=== PATIENT | female | born 2000 | race Caucasian/White ===

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

== ENCOUNTER 2019-02-20 05:30 | Inpatient (IN) ==
[2019-02-20] MEDS ORDERED: Naloxone 0.4 MG/ML INJ IVP PRN (05:47)
[2019-02-20] MEDS ORDERED: Famotidine 20 MG/2 ML VIAL IVP PRN (05:47)
[2019-02-20] MEDS ORDERED: miSOPROStol 25 MCG TABLET PO PRN (05:47)
[2019-02-20] MEDS ORDERED: Metoclopramide 10 MG/2 ML VIAL IVP PRN (05:47)
[2019-02-20] MEDS ORDERED: *HR* Nalbuphine 10 MG/ML AMPUL IVP PRN (05:47)
[2019-02-20] MEDS ORDERED: Ondansetron 4 MG/2 ML VIAL IVP PRN (05:47)
[2019-02-20] MEDS ORDERED: D5% in 0.45% NACL 1,000 ML IVC SCH (06:00)
[2019-02-20] MEDS ORDERED: Ringers Solution, Lactated 1,000 ML IVC SCH (06:00)
[2019-02-20] MEDS ORDERED: Lidocaine -MPF 1% 2 ML VIAL ONE (06:26)
[2019-02-20] MEDS ORDERED: Epidural Premix (fent/bupiv) 110 ML EP SCH (06:45)
--- NOTE | 2019-02-20 06:47 | Anesthesia Evaluation PreOp ---
Date of Encounter: 02/20/19 Time of Encounter: 06:44 - Past History Planned Operation: Del, induction Cardiac History: Denies any Significant Hx Pulmonary History: Denies Any Significant HX [employer] History: Denies Any Significant HX Other Medical History: Denies Any Significant HX Anesthesia History: No Prior Anesthetic Complications, Past Anesthesia (previous epidurals without comp, no family hx.) Alcohol Use: none Drug use: none Medications and Allergies Acetaminophen [Tylenol] 650 mg PO Q6HR PRN tablet 12/14/17 [Rx] Aspirin [Lo-Dose Aspirin EC] 81 mg PO DAILY 01/28/19 [History] Ferrous Sulfate [High Potency Iron] 27 mg PO DAILY 01/28/19 [History] Folic Acid 1 mg PO DAILY 01/28/19 [History] Ondansetron HCl [Zofran] 2 tab PO DAILY 01/28/19 [History] Pediatric Multivit Comb. No.49 [Flintstones Gummies] 1 tab PO DAILY 01/28/19 [History] Allergy/AdvReac Type Severity Reaction Status Date / Time No Known Allergies Allergy Verified 12/12/17 19:32 Anesthesia Exam - HEENT Pupil (Motor): Pupils equal Mallampati: III Teeth: Poor dentition Oral Opening: Greater than 3 - [employer] LOC: Oriented [employer] Motor: Normal RUE, Normal LUE, Normal RLE, Normal LLE, Normal Face [employer] Sensory: Normal: RUE, LUE, RLE, LLE, Face - Cardiac Rhythm: Regular Murmur: None - Pulmonary Breath Sounds: bilateral Clear Respiratory Effort: Symmetrical Anesthesia Assess/Plan ASA Score: 2 Level of consciousness: Cooperative, Oriented Anesthetic Plan: General, Spinal, Epidural Monitoring Plan: Standard Monitors Recovery Plan: PACU
[2019-02-20 06:50] LABS: Hemoglobin 9.1 g/dL (11.5-15.4)
[2019-02-20 06:51] LABS: Eosinophils % 1.2 %
[2019-02-20 06:52] LABS: Basophils # 0.1 K/mcL (0.0-0.2); Basophils % 0.8 %; Eosinophils # 0.1 K/mcL (0.0-0.6); Hematocrit 32.2 % (35.3-44.9); Immature Granulocytes % 0.4 % (0-4); Lymphocytes # 1.8 K/mcL (0.6-4.6); Lymphocytes % 23.6 %; Mean Corpuscular HGB Conc 28.3 g/dL (31.6-35.5); Mean Corpuscular Hemoglobin 20.1 pg (28.0-33.3); Mean Corpuscular Volume 71.2 fL (83.0-100.0); Mean Platelet Volume 9.7 fL (9.4-12.4); Monocytes # 0.9 K/mcL (0.0-1.3); Monocytes % 11.4 %; Neutrophils # 4.8 K/mcL (1.6-8.9); Platelet Count 392 K/mcL (140-400); Red Blood Count 4.52 M/mcL (3.82-4.97); Red Cell Distribution Width 25.6 % (11.5-14.5); Segmented Neutrophils % 62.6 %
[2019-02-20 06:57] LABS: Amphetamine Screen,Urine Negative ng/mL (Cutoff=1000); Barbiturate Screen,Urine Negative ng/mL (Cutoff=200)
[2019-02-20 06:58] LABS: Benzodiazepines Screen,Urine Negative ng/mL (Cutoff=300); Cannabinoid Screen,Urine Negative ng/mL (Cutoff = 50); Cocaine Screen,Urine Negative ng/mL (Cutoff= 300); Opiate Screen,Urine Negative ng/mL (Cutoff=300); Phencyclidine Screen,Urine Negative ng/mL (Cutoff=25)
[2019-02-20 07:13] LABS: Anisocytosis 1+ (Not Present); Hypochromasia Present (Not Present)
[2019-02-20 07:14] LABS: Ovalocytes 1+ (Not Present); Platelet Estimate Normal (Normal); Poikilocytosis 1+ (Not Present)
--- NOTE | 2019-02-20 09:31 | OB/GYN History & Physical ---
Date of Encounter: 02/20/19 Time of Encounter: 09:27 Assessment and Plan (1) Polyhydramnios affecting in third trimester Current visit: Yes Status: Acute Glucose screening normal. No structural abnormalities dentified for late onset polyhydramnios. No history of viral infections. The patient has had MFM consultation (2) Anemia affecting in third trimester Current visit: Yes Status: Acute The patient has received iron infusions and vitamin B12 injections. She has increased from 7.9-9.1 prior to delivery. (3) Short interval between pregnancies affecting in third trimester, antepartum Current visit: Yes Status: Acute (4) 39 weeks gestation of Current visit: Yes Status: Acute History of Present Illness Chief complaint: IOL @ 39 wks HPI: Ms. Smith is a 19 year old female with an EDC of 02/24/19@39 weeks and 3 days by LMP and first trimester ultrasound who presents for induction of labor for medical indications of polyhydramnios and gestational hypertension. Her is also been complicated by a BMI of 30 prepregnancy and short interval between pregnancies. She is also has significant anemia where her hemoglobin has dropped to 7.9. She is been receiving B12 injections and IV iron and today presents with a hemoglobin of 9.1. Her ELVIRA was recently was 26.8 with an MVP of 8.7. She was followed by NSTs and ELVIRA's in the office. Her polyhydramnios has been stable. Her glucose screening has been normal. She reports an active fetus, denies any vaginal bleeding or loss of fluid. She reports irregular contractions prior to admission but is uncomfortable with them now and is hoping for an epidural for pain management. Her blood type is O+, she is varicella nonimmune, rubella immune and GBS negative. Past Med Surg Social Fam HX - Past Medical History Source: patient, old records reviewed Medical history: no medical history Psychiatric history: no psych history - Past Surgical History Surgical History: no surgical history - Social History Smoking Status: Never smoker Smokeless Tobacco Status: No Alcohol use: none Drug use: none - Family History Mother Adopted: No Family Member Ethnicity: Non- Living Status: Still Living Hx Family Cardiac Disorders: No Hx Family Respiratory Disorders: No Hx Family Cancer: No Hx Family GI Disorders: No Hx Family Endocrine Disorder: No Hx Family Neuromuscular Disorders: No Hx Family Neurologic Disorders: No Hx Family HEENT Disorders: No Hx Family Autoimmune Disorders: No Obstetrical History - Pregnancies : 3 Term: 2 Livin Medications and Allergies Acetaminophen [Tylenol] 650 mg PO Q6HR PRN tablet 12/14/17 [Rx] Aspirin [Lo-Dose Aspirin EC] 81 mg PO DAILY 01/28/19 [History] Ferrous Sulfate [High Potency Iron] 27 mg PO DAILY 01/28/19 [History] Folic Acid 1 mg PO DAILY 01/28/19 [History] Ondansetron HCl [Zofran] 2 tab PO DAILY 01/28/19 [History] Pediatric Multivit Comb. No.49 [Flintstones Gummies] 1 tab PO DAILY 01/28/19 [History] Allergy/AdvReac Type Severity Reaction Status Date / Time No Known Allergies Allergy Verified 12/12/17 19:32 Review of System OB All systems PM: reviewed and no additional remarkable complaints except as stated - Constitutional Constitutional ROS IM: fatigue, weight gain - Gastrointestinal Gastrointestinal: cramping - Muscloskeletal Musculoskeletal: back pain, other (Back discomfort) Exam - Vital Signs Vital signs: Afebrile, vital signs stable. heart tones 130s baseline, CAT 1 - Constitutional Constitutional: well developed, well nourished, obese - HEENT HEENT: Normocephaly, Mucus Membranes Moist - Neck Neck exam: normal inspection, supple - Lungs Respiratory exam: CTAB - Cardiovascular Cardiovascular exam: RRR - Breasts Breast: bilateral: normal (Gravid) - Abdomen Abdomen: Present: bowel sounds normal, gravid, non tender - Extremities Extremities exam: normal inspection, warm Deep Tendon Reflex Grade: 2+ Normal - Vulva Vulva: bilateral: normal - Vagina Vagina: Present: normal moisture - Cervix Cervix: Absent: lesion Dilation: 6 Effacement: 70 Station: -3 (Ballotable, vertex) - Anus/Rectum Anus/Rectum: Present: normal perianal skin Results Result Diagrams: 02/20/19 06:33 Abnormal lab results Hgb 9.1 g/dL (11.5-15.4) L 02/20/19 06:33 Hct 32.2 % (35.3-44.9) L 02/20/19 06:33 MCV 71.2 fL (83.0-100.0) L D 02/20/19 06:33 MCH 20.1 pg (28.0-33.3) L 02/20/19 06:33 MCHC 28.3 g/dL (31.6-35.5) L 02/20/19 06:33 RDW 25.6 % (11.5-14.5) H 02/20/19 06:33 Present (Not Present) A 02/20/19 06:33 1+ (Not Present) A 02/20/19 06:33 1+ (Not Present) A 02/20/19 06:33 1+ (Not Present) A 02/20/19 06:33 All other labs normal. - VTE Reasons for not Prescribing Prophylaxis: Treatment not Indicated - Low risk for VTE
--- NOTE | 2019-02-20 15:40 | Anesthesia Procedures ---
Date of Encounter: 02/20/19 Time of Encounter: 11:13 Procedures: Anesthesia - Epidural/Spinal Patient ID/Chart reviewed: Yes Patient examined: Yes OB Eval: Gestational age: 39 OB Eval: : 3 OB Eval: Hx Para: 2 OB Eval: Dilated at (cm): 6 OB Eval: Contractions: Non-stressed pattern Supplemental Oxygen: None/Room Air Site Prep: Aseptic Technique, Sterile prep and drape, Povidone-Iodine 1% Patient position: upright Local Anesthetic: Lidocaine 1% Amount of Local Anesthetic used: 3 Touhy Needle Gauge: 18 Touhy Needle Depth (cm): 7 Catheter Depth at Skin (cm): 18 Test Dose (1.5% Lido + Epi): Volume given (mls): 3 Test Dose Result: Negative Loading Dose: 0.25% Marcaine (mls): 8 Loading Dose: Fentanyl (mcg): 100 Loading Dose Administered: Thru Catheter Infusion Med: 0.125% Bupivacaine w/ 2 mcg/ml Fentanyl Infusion Rate (mls/hr): [address]: Tegaderm, Tape Interspace Used: L3-L4 Loss of Resistance (DINORA): Yes Blood: No CSF: No Paresthesia: No Vitals + FHT's: Vital Signs Time 1113 1127 1130 1135 BP 123/80 145/69 123/63 122/60 Pulse 97 96 97 107 FHTs 140 140 140 140
--- NOTE | 2019-02-20 18:26 | OB Labor Progress Note ---
Date of Encounter: 02/20/19 Time of Encounter: 18:10 Labor Progress Note - Subjective Subjective: The patient is comfortable with her epidural and does not appreciate any significant discomfort with contractions and reports no pressure vaginally - Vital Signs Vital Signs: Afebrile, vital signs stable - Cervix Cervix: 7/80/-2, vertex but well applied with contraction, bulgy bag of water - Heart Tones Heart Tones: 125s baseline, CAT 1 - Wilcox Wilcox: Contractions every 2-3 minutes after single dose of Cytotec around 0730 today - Interventions Interventions: 39 week IUP with known polyhydramnios, please see problem list, for induction of labor - Plan Plan: Amniotomy, small with small amount of clear fluid seen with vertex staying well applied during exam. Continue induction of labor
--- NOTE | 2019-02-20 22:05 | Anesthesia Progress Note ---
Date of Encounter: 02/20/19 Time of Encounter: 20:41 Anesthesia Note - Note Note: 02/20/19 22:03 called to LDR 12 for return of contraction pain to back and left side of lower abdomen, 06/01. No migration of epidural catheter. Dosed epidural with 8ml 0.25% bupivacaine and 100mcg fentanyl. VSS and FHTs stable throughout bolus. Stated improvement and decreasing pain after bolus.
[2019-02-20] MEDS ORDERED: Oxytocin 20 units/ LR 1000 mL 20 UNIT/1,000 ML BAG IVC ONE (22:23)
[2019-02-20] MEDS ORDERED: Acetaminophen 325 MG TABLET PO PRN (22:48)
[2019-02-20] MEDS ORDERED: Benzocaine/Menthol 56 GM AEROSOL SPRAY TP PRN (22:48)
[2019-02-20] MEDS ORDERED: Rho Immune Globulin 1,500 UNIT SYRINGE IM PRN (22:48)
[2019-02-20] MEDS ORDERED: *HR* HYDROcodone/Acet 5/325 mg TABLET PO PRN (22:48)
--- NOTE | 2019-02-20 22:55 | OB/GYN Procedure Note ---
Delivery - Delivery Date: 02/20/19 Provider: Daniella Taylor Intrapartum events: none Delivery induction: misoprostol Delivery augmentation: rupture of membranes Delivery monitor: external FHT, external uterine Anesthesia: epidural Quantitated Blood Loss: 200 - Infant (s) A Infant Delivery Date: 02/20/19 Infant Delivery Time: 22:22 Presentation: vertex Position: WALE Route of delivery: Gender: Female Viability: Viable Pounds: 8 Ounces: 3 Weight Gram: 3.71 kg at 1 minute: 8 at 5 mins: 9 Shoulder Dystocia: not encountered Specimens collected: cord blood Placenta: spontaneous Cord: 3 umbilical vessels - Repair Laceration Description: Periurethral, Perineal - 2nd Degree, Vaginal (Right and left) - Complications Delivery complications: none Delivery comments: The patient was complete and pushing with epidural anesthesia with a spontaneous vaginal delivery of a vigorous female weighing 8 lbs. 3 oz. with Apgars of 8 at 1 minute and 9 at 5 minutes. There were 1000 mL of clear fluid with the delivery of the fetus. Infant was placed on the maternal abdomen and cord was clamped and cut after pulsations ceased. Cord blood was obtained. Placenta was delivered spontaneous and intact. Three-vessel cord confirmed. There were bilateral superficial periurethral lacerations which were hemostatic and unrepaired. There was a midline second-degree perineal laceration which was repaired with 3-0 Vicryl in usual fashion. There were bilateral vaginal lacerations which were not hemostatic and repaired with 3-0 Vicryl in a [id number] fashion bilaterally. Cervix was without any lacerations. Estimated blood loss 200 mL complications none. Both mother and recovering in stable condition in the LDR. - Disposition Mom disposition: stable in LDR [place] disposition: stable in LDR
[2019-02-20] MEDS ORDERED: Oxytocin 20 units/ LR 1000 mL 20 UNIT/1,000 ML BAG IVC SCH (23:00)
[2019-02-21 04:56] LABS: Basophils % 0.2 %; Eosinophils % 0.1 %; Hematocrit 28.9 % (35.3-44.9); Hemoglobin 8.4 g/dL (11.5-15.4); Immature Granulocytes % 0.5 % (0-4); Lymphocytes # 1.5 K/mcL (0.6-4.6); Lymphocytes % 8.3 %; Mean Corpuscular HGB Conc 29.1 g/dL (31.6-35.5); Mean Corpuscular Hemoglobin 20.5 pg (28.0-33.3); Mean Corpuscular Volume 70.5 fL (83.0-100.0); Mean Platelet Volume 9.2 fL (9.4-12.4); Monocytes # 1.6 K/mcL (0.0-1.3); Monocytes % 8.7 %; Neutrophils # 14.8 K/mcL (1.6-8.9); Platelet Count 302 K/mcL (140-400); Red Cell Distribution Width 25.2 % (11.5-14.5); Segmented Neutrophils % 82.2 %
[2019-02-21 05:46] LABS: Anisocytosis 3+ (Not Present); Microcytosis Present (Not Present); Platelet Estimate Normal (Normal)
[2019-02-21 05:47] LABS: Hypochromasia Present (Not Present)
[2019-02-21] MEDS ORDERED: Prenatal Vit/FA 1 EACH TABLET PO SCH (09:00)
--- NOTE | 2019-02-21 09:11 | OB/GYN Progress Note ---
Date of Encounter: 02/21/19 Time of Encounter: 09:09 - Assessment and Plan (1) anemia Current Visit: Yes Status: Acute on iron TID (2) Vaginal delivery Current Visit: Yes Status: Acute Stable PPD#1 Continue to monitior vitals q4 CBC at noon If continues to be febrile with elevated WBC will place on ATB Anticipate discharge tomorrow. POC discussed with Dr. Miranda Subjective - Subjective Interval history: Stable, pain well managed, bottle feeding, bleeding minimal, Patient reports: appetite normal, voiding normally, pain well controlled [place]: doing well, bottle feeding Objective - Latest Vital Signs Latest vital signs: Vital Signs Temp Pulse Resp BP Pulse Ox 02/21/19 04:15 99.9 F H 112 14 116/64 96 02/21/19 02:00 99.6 F 115 14 129/80 100 02/21/19 01:00 99.6 F 97 18 137/86 100 Intake and Output 02/20/19 02/21/19 02/21/19 23:59 07:59 15:59 Output Total 700 / 700 Balance -700 / -700 Output: Urine 500 / 500 Estimated Blood Loss 200 / 200 - Exam Lungs: bilateral: normal Chest: Normal S1 (tachy), Normal S2 Abdomen: Present: normal appearance, soft Uterus: Present: firm Uterus Position: At Umbilicus - Labs Labs: Laboratory Results - last 24 hr 02/21/19 04:36 WBC 18.0 H D RBC 4.10 Hgb 8.4 L Hct 28.9 L MCV 70.5 L MCH 20.5 L MCHC 29.1 L RDW 25.2 H Plt Count 302 MPV 9.2 L Immature Gran % 0.5 Seg Neutrophils % 82.2 Lymphocytes % 8.3 Monocytes % 8.7 Eosinophils % 0.1 Basophils % 0.2 Neutrophils # 14.8 H Lymphocytes # 1.5 Monocytes # 1.6 H Eosinophils # 0.0 Basophils # 0.0 Platelet Estimate Normal Hypochromasia Present A Anisocytosis 3+ A Microcytosis Present A
[2019-02-21] MEDS: Ibuprofen 600 MG TABLET PO SCH ×2 (09:51→20:37)
[2019-02-21 13:45] LABS: Hemoglobin 8.8 g/dL (11.5-15.4); Mean Platelet Volume 9.8 fL (9.4-12.4)
[2019-02-21 13:46] LABS: Immature Granulocytes % 0.4 % (0-4)
[2019-02-21 13:47] LABS: Basophils % 0.3 %; Eosinophils # 0.1 K/mcL (0.0-0.6); Eosinophils % 0.5 %; Hematocrit 30.3 % (35.3-44.9); Lymphocytes # 1.9 K/mcL (0.6-4.6); Lymphocytes % 13.1 %; Mean Corpuscular Hemoglobin 20.6 pg (28.0-33.3); Monocytes # 1.1 K/mcL (0.0-1.3); Monocytes % 7.8 %; Platelet Count 299 K/mcL (140-400); Red Blood Count 4.27 M/mcL (3.82-4.97); Red Cell Distribution Width 25.8 % (11.5-14.5); Segmented Neutrophils % 77.9 %
[2019-02-21 14:10] LABS: Neutrophils # 11.1 K/mcL (1.6-8.9)
[2019-02-21 14:57] LABS: Hypochromasia Present (Not Present); Platelet Estimate Normal (Normal)
[2019-02-21 14:58] LABS: Anisocytosis 1+ (Not Present); Microcytosis Present (Not Present)
[2019-02-21 14:59] LABS: Poikilocytosis 1+ (Not Present)
[2019-02-21 20:35] VITALS: BP 118/75
--- NOTE | 2019-02-21 23:03 | Discharge Summary ---
Date of Encounter: 02/21/19 Time of Encounter: 23:01 - Discharge Diagnosis (1) anemia Priority: Secondary Status: Acute Comments: Continue Ferrous sulfate 325mg po BID (2) Vaginal delivery Priority: Primary Status: Acute Comments: Continue routine care follow up with OB provider in 4-6 weeks for visit Discharge plan discussed with Dr. Isabel - Discharge Medications Prescriptions: New Ferrous Sulfate 325 mg PO BID #60 tablet Ibuprofen [Motrin] 600 mg PO Q6HR #60 tablet Benzocaine/Menthol [place] [Dermoplast [place]] 1 appl TP QID PRN aerosol PRN Reason: See Comments Docusate [Colace] 100 mg PO BID capsule Discontinued Acetaminophen [Tylenol] 650 mg PO Q6HR PRN tablet PRN Reason: Mild Pain Aspirin [Lo-Dose Aspirin EC] 81 mg PO DAILY Ondansetron HCl [Zofran] 2 tab PO DAILY Folic Acid 1 mg PO DAILY Pediatric Multivit Comb. No.49 [Flintstones Gummies] 1 tab PO DAILY Ferrous Sulfate [High Potency Iron] 27 mg PO DAILY Home Medications: Benzocaine/Menthol [place] [Dermoplast [place]] 1 appl TP QID PRN aerosol 02/21/19 [Rx] Docusate [Colace] 100 mg PO BID capsule 02/21/19 [Rx] Ferrous Sulfate 325 mg PO BID #60 tablet 02/21/19 [Rx] Ibuprofen [Motrin] 600 mg PO Q6HR #60 tablet 02/21/19 [Rx] Allergies/Adverse Reactions: Allergy/AdvReac Type Severity Reaction Status Date / Time No Known Allergies Allergy Verified 12/12/17 19:32 Data Procedures and tests throughout hospitalization: Laboratory Tests 02/20/19 02/20/19 02/21/19 06:33 06:33 04:36 WBC 7.6 18.0 H D RBC 4.52 4.10 Hgb 9.1 L 8.4 L Hct 32.2 L 28.9 L MCV 71.2 L D 70.5 L MCH 20.1 L 20.5 L MCHC 28.3 L 29.1 L RDW 25.6 H 25.2 H Plt Count 392 302 MPV 9.7 9.2 L Immature Gran % 0.4 0.5 Seg Neutrophils % 62.6 82.2 Lymphocytes % 23.6 8.3 Monocytes % 11.4 8.7 Eosinophils % 1.2 0.1 Basophils % 0.8 0.2 Neutrophils # 4.8 14.8 H Lymphocytes # 1.8 1.5 Monocytes # 0.9 1.6 H Eosinophils # 0.1 0.0 Basophils # 0.1 0.0 Platelet Estimate Normal Normal Hypochromasia Present A Present A Poikilocytosis 1+ A Anisocytosis 1+ A 3+ A Microcytosis Present A Ovalocytes 1+ A Urine Opiates Screen Negative Ur Barbiturates Screen Negative Ur Phencyclidine Scrn Negative Ur Amphetamines Screen Negative U Benzodiazepines Scrn Negative Urine Cocaine Screen Negative U Marijuana (THC) Screen Negative Ur Drug Screen Interp See Below 02/21/19 13:06 WBC 14.3 H RBC 4.27 Hgb 8.8 L Hct 30.3 L MCV 71.0 L MCH 20.6 L MCHC 29.0 L RDW 25.8 H Plt Count 299 MPV 9.8 Immature Gran % 0.4 Seg Neutrophils % 77.9 Lymphocytes % 13.1 Monocytes % 7.8 Eosinophils % 0.5 Basophils % 0.3 Neutrophils # 11.1 H Lymphocytes # 1.9 Monocytes # 1.1 Eosinophils # 0.1 Basophils # 0.0 Platelet Estimate Normal Hypochromasia Present A Poikilocytosis 1+ A Anisocytosis 1+ A Microcytosis Present A Ovalocytes Urine Opiates Screen Ur Barbiturates Screen Ur Phencyclidine Scrn Ur Amphetamines Screen U Benzodiazepines Scrn Urine Cocaine Screen U Marijuana (THC) Screen Ur Drug Screen Interp Labs on day of discharge: Labs from last 24 hours 02/21/19 02/21/19 13:06 04:36 WBC 14.3 H 18.0 H D RBC 4.27 4.10 Hgb 8.8 L 8.4 L Hct 30.3 L 28.9 L MCV 71.0 L 70.5 L MCH 20.6 L 20.5 L MCHC 29.0 L 29.1 L RDW 25.8 H 25.2 H Plt Count 299 302 MPV 9.8 9.2 L Immature Gran % 0.4 0.5 Seg Neutrophils % 77.9 82.2 Lymphocytes % 13.1 8.3 Monocytes % 7.8 8.7 Eosinophils % 0.5 0.1 Basophils % 0.3 0.2 Neutrophils # 11.1 H 14.8 H Lymphocytes # 1.9 1.5 Monocytes # 1.1 1.6 H Eosinophils # 0.1 0.0 Basophils # 0.0 0.0 Platelet Estimate Normal Normal Hypochromasia Present A Present A Poikilocytosis 1+ A Anisocytosis 1+ A 3+ A Microcytosis Present A Present A Date of admission: 02/20/19 05:33 Primary care physician: Karen Rascon CNP Consults: 02/20/19 22:48 Consult to Policy Officer [CONS] Routine Comment: Vaginal delivery, consult needed Discharging clinician: Vicky Bazzi Anticipated date of discharge: 02/21/19 - Patient Status Disposition: Home, Self-Care Condition: Good Functional capacity at discharge: independent ambulation - Discharge Instructions Follow Up With: Karen Rascon CNP [Primary Care Provider] - Daniella Taylor MD [Partnered Physician] - - Diet and Activity Activity: increase activity as tolerated Diet: regular diet Hospital Course Reason for admission: induction of labor Delivery: Laceration: 2nd degree Other procedures: none complications: none Discharge diagnosis: IUP at term delivered [place] baby: female (bottle feeding) Time Attestation: Total time spent providing and/or coordinating discharge services: Time Spent: Less than 30 minutes Specific discharge activities: Patient requesting discharge at this time. Patient reports she needs to get home to her other children. Exam - Constitutional Vitals: Temp Pulse Resp BP Pulse Ox 98.4 F 97 16 118/75 98 02/21/19 19:30 02/21/19 19:30 02/21/19 19:30 02/21/19 19:30 02/21/19 19:30 General appearance IM: A&O X 3, pleasant, answers questions appropriately - Respiratory Respiratory exam: Present: CTAB - Uterine Tone: Firm Uterus Position: At Umbilicus, Midline
== END 2019-02-22 02:01 | disposition home or self-care (01) | DRG 560 ==
LOC: 1NENULAB 05:33 → 1NENUOBS 02-21 01:06
PROVIDERS: ADMIT Obstetrics & Gynecology; ATTEND Obstetrics & Gynecology

== ENCOUNTER → 2021-07-16 17:28 | Observation (INO) ==
[2021-07-16 17:00] LABS: Amorphous Sediment,Urine Few per hpf (None-Few); Bacteria,Urine Few per hpf (None-Few); Bilirubin,Urine Negative (Negative); Blood,Urine Negative (Negative); Clarity,Urine Turbid (Clear); Color,Urine Yellow (Yellow); Glucose,Urine (UA) Normal (Normal); Ketones,Urine Trace mg/dL (Negative); Leukocyte Esterase,Urine Large (Negative); Mucus,Urine Few per lpf (None-Few); Nitrite,Urine Negative (Negative); Protein,Urine 30 mg/dL (Neg-Trace); RBC,Urine 0-3 per hpf (0-3); Squamous Epithelial Cell,Urine Moderate per hpf (None-Few); Urobilinogen,Urine Normal (Normal); WBC,Urine 15-30 per hpf (0-3)
== END | disposition home or self-care (01) ==
LOC: 1NENULAB
PROVIDERS: ADMIT Advanced Practice Midwife; ATTEND Advanced Practice Midwife

== ENCOUNTER 2021-07-24 06:49 | Inpatient (IN) ==
[~2021-07-24 06:49] MED LIST changes: +*HR* Nalbuphine 10 MG/ML AMPUL IV PRN; +Famotidine 20 MG/2 ML VIAL IVP PRN; +Lidocaine 1% 20 ML MDV INFILT PRN; -Methylergonovine 0.2 MG/ML AMPUL IM ONE; +Metoclopramide 10 MG/2 ML VIAL IVP PRN; +Naloxone 0.4 MG/ML INJ IVP PRN; -miSOPROStol 100 MCG TABLET PO ONE
[2021-07-24] MEDS ORDERED: Ringers Solution, Lactated 1,000 ML IVC SCH (07:00)
[2021-07-24 07:11] LABS: Basophils # 0.1 K/mcL (0.0-0.2); Basophils % 0.3 %; Eosinophils # 0.2 K/mcL (0.0-0.6); Eosinophils % 0.7 %; Hematocrit 34.8 % (35.3-44.9); Hemoglobin 10.4 g/dL (11.5-15.4); Immature Granulocytes % 0.6 % (0-4); Lymphocytes # 2.4 K/mcL (0.6-4.6); Lymphocytes % 11.8 %; Mean Corpuscular HGB Conc 29.9 g/dL (31.6-35.5); Mean Corpuscular Volume 73.7 fL (83.0-100.0); Mean Platelet Volume 10.2 fL (9.4-12.4); Monocytes # 1.4 K/mcL (0.0-1.3); Monocytes % 6.6 %; Neutrophils # 16.4 K/mcL (1.6-8.9); Platelet Count 325 K/mcL (140-400); Red Blood Count 4.72 M/mcL (3.82-4.97); Red Cell Distribution Width 15.9 % (11.5-14.5); White Blood Count 20.5 K/mcL (4.3-11.1)
[2021-07-24] MEDS ORDERED: Epidural Premix (fent/bupiv) 0 ML EP ONE (07:16)
[2021-07-24 07:50] LABS: Influenza A PCR Negative (Negative); Influenza B PCR Negative (Negative); Resp. Syncytial Virus PCR Negative (Negative)
[2021-07-24 08:44] LABS: SARS-CoV-2 by PCR (In House) Negative (Negative)
[2021-07-24] MEDS ORDERED: Ondansetron ODT 4 MG TAB.RAPDIS SL PRN (10:29)
[2021-07-24] MEDS ORDERED: Oxytocin 20 units/ LR 1000 mL 20 UNIT/1,000 ML BAG IVC SCH (10:29)
[2021-07-24] MEDS ORDERED: Benzocaine/Menthol 56 GM AEROSOL SPRAY TP PRN (10:29)
[2021-07-24] MEDS ORDERED: Lanolin 7 G OINT...G. TP PRN (10:29)
[2021-07-24] MEDS: Acetaminophen 325 MG TABLET PO SCH ×2 (11:59→18:52)
[2021-07-24] MEDS: Ibuprofen 600 MG TABLET PO SCH ×2 (11:59→18:52)
[2021-07-24] MEDS: Prenatal Vit/FA 1 EACH TABLET PO SCH (17:36)
[2021-07-25 03:41] LABS: Basophils # 0.1 K/mcL (0.0-0.2); Basophils % 0.5 %; Eosinophils # 0.2 K/mcL (0.0-0.6); Eosinophils % 1.1 %; Hematocrit 33.8 % (35.3-44.9); Hemoglobin 10.2 g/dL (11.5-15.4); Immature Granulocytes % 0.7 % (0-4); Lymphocytes # 2.5 K/mcL (0.6-4.6); Mean Corpuscular HGB Conc 30.2 g/dL (31.6-35.5); Mean Corpuscular Hemoglobin 22.2 pg (28.0-33.3); Mean Corpuscular Volume 73.6 fL (83.0-100.0); Mean Platelet Volume 10.4 fL (9.4-12.4); Monocytes # 1.3 K/mcL (0.0-1.3); Monocytes % 8.5 %; Neutrophils # 11.3 K/mcL (1.6-8.9); Platelet Count 282 K/mcL (140-400); Red Blood Count 4.59 M/mcL (3.82-4.97); Segmented Neutrophils % 73.2 %; White Blood Count 15.4 K/mcL (4.3-11.1)
[2021-07-25] MEDS: Acetaminophen 325 MG TABLET PO SCH (06:29)
[2021-07-25] MEDS: Ibuprofen 600 MG TABLET PO SCH (06:29)
[2021-07-25 08:16] VITALS: BP 129/85; PULSE 90; TEMP 98; O2SAT 97
[2021-07-25] MEDS: Prenatal Vit/FA 1 EACH TABLET PO SCH (08:18)
== END 2021-07-25 13:36 | disposition home or self-care (01) | DRG 560 ==
LOC: 1NENULAB → 1NENUOBS 09:50
PROVIDERS: ADMIT Obstetrics & Gynecology; ATTEND Obstetrics & Gynecology